=== PATIENT | female | born 1980 | race Caucasian/White ===

== ENCOUNTER → 2016-07-24 | Outpatient (CLI) | payer OTHER ==
[~2016-07-24] MED LIST: COLACE100 MG PO; CYMBALTA DPS60 MG PO; CYMBALTA60 MG PO; LEVOTHYROXINE75 MCG PO; MIRALAX DPS17 GM PO; MOTRIN-DPS800 MG PO; NEWMANS NIPPLE CREAM TP; PERCOCET 5-3251 EACH PO; PRENATAL VIT1 TAB PO; PRENATAL VITAM1 EAC1 PO; PROTONIX40 MG PO; TIROSINT75 MCG PO; ZANTAC150 MG PO
== END | disposition home or self-care (01) ==
LOC: RAD.S 07-15 14:30
DX: N92.0 Excessive and frequent menstruation with regular cycle (principal); N94.6 Dysmenorrhea, unspecified; R10.2 Pelvic and perineal pain; N83.202 Unspecified ovarian cyst, left side

== ENCOUNTER → 2016-11-13 | Outpatient (CLI) | payer OTHER | END | disposition home or self-care (01) | LOC: RAD.S 10:00 | DX: N83.202 Unspecified ovarian cyst, left side (principal) ==